=== PATIENT | male | born 1960 | race Caucasian/White ===

== ENCOUNTER 2017-05-05 08:46 | Observation (INO) | payer OTHER ==
[~2017-05-05] VITALS: Ht 177.8 cm; Wt 92.5 kg
[~2017-05-05 08:46] MED LIST: ASPI-496 PO; ATOR10TA PO; LISI1TAB3 PO
[2017-05-05] MEDS ORDERED: VALS160T3 PO (09:08)
[2017-05-05] MEDS ORDERED: ASPIRIN 81 MG TABLET CHEW ONE (09:25)
[2017-05-05] MEDS ORDERED: ASPIRIN 81 MG TABLET CHEW PO ONE (09:30)
[2017-05-05 09:51] LABS: BASOPHILS # (AUTO) 0.06 x10^3/uL (0-0.1); BASOPHILS % (AUTO) 1 % (0-1); EOSINOPHILS # (AUTO) 0.23 x10^3/uL (0-0.4); EOSINOPHILS % (AUTO) 3 % (1-7); LYMPHOCYTES # (AUTO) 1.41 x10^3/uL (1-3.4); LYMPHOCYTES % (AUTO) 16 % (22-44); MD NO; MEAN CORPUSCULAR HEMOGLOBIN 30.4 pg (27.5-34.5); MEAN CORPUSCULAR HGB CONC 34.4 g/dL (33.2-36.2); MEAN CORPUSCULAR VOLUME 88.3 fL (81-97); MEAN PLATELET VOLUME 9.2 fL (7.4-10.4); MONOCYTES # (AUTO) 0.51 x10^3/uL (0.2-0.8); MONOCYTES % (AUTO) 6 % (2-9); NEUTROPHILS # (AUTO) 6.38 x10^3/uL (1.8-6.8); NEUTROPHILS % (AUTO) 74 % (42-75); PLATELET COUNT 308 x10^3/uL (130-400); RED BLOOD COUNT 5.56 x10^6/uL (4.38-5.82); RED CELL DISTRIBUTION WIDTH 13.7 % (9.4-14.8)
[2017-05-05 10:02] LABS: ALBUMIN 3.8 g/dL (3.4-5.0); ANION GAP 6 mmol/L (5-15); CALCIUM 8.8 mg/dL (8.5-10.1); CHLORIDE 106 mmol/L (98-107); CREATININE 0.97 mg/dL (0.7-1.3)
[2017-05-05 10:05] LABS: TROPONIN I < 0.015 ng/mL (0.000-0.045)
[2017-05-05] MEDS ORDERED: morphine SULFATE 10 MG/ML, 1ML IVPush ONE (11:00)
[2017-05-05 11:27] VITALS: BP 139/95
[2017-05-05] MEDS ORDERED: LABETALOL 5MG/ML, 20ML IVPush PRN (12:00)
[2017-05-05] MEDS ORDERED: ONDANSETRON ODT 4 MG PO PRN (12:00)
[2017-05-05] MEDS ORDERED: ONDANSETRON 2MG/ML, 2ML IVPush PRN (12:00)
[2017-05-05] MEDS: ENOXAPARIN 40 MG/0.4 ML SQ SCH (12:00)
[2017-05-05 13:58] LABS: FREE T4 (FREE THYROXINE) 0.95 ng/dL (0.76-1.46)
[2017-05-05 15:19] VITALS: BP 113/81
[2017-05-05 16:22] LABS: TROPONIN I < 0.015 ng/mL (0.000-0.045)
[2017-05-05 19:20] VITALS: BP 129/76
[2017-05-05] MEDS ORDERED: VALSARTAN 160 MG TABLET PO SCH (21:00)
[2017-05-05 22:03] LABS: TROPONIN I < 0.015 ng/mL (0.000-0.045)
[2017-05-06 01:57] VITALS: BP 119/75
[2017-05-06 05:19] LABS: ALANINE AMINOTRANSFERASE 31 U/L (12-78); ALBUMIN 3.5 g/dL (3.4-5.0); ANION GAP 5 mmol/L (5-15); CALCIUM 8.9 mg/dL (8.5-10.1); CHLORIDE 106 mmol/L (98-107); CREATININE 1.03 mg/dL (0.7-1.3)
[2017-05-06 05:22] LABS: BASOPHILS # (AUTO) 0.06 x10^3/uL (0-0.1); BASOPHILS % (AUTO) 1 % (0-1); EOSINOPHILS % (AUTO) 4 % (1-7); LYMPHOCYTES # (AUTO) 1.88 x10^3/uL (1-3.4); LYMPHOCYTES % (AUTO) 20 % (22-44); MD NO; MEAN CORPUSCULAR HEMOGLOBIN 30.2 pg (27.5-34.5); MEAN CORPUSCULAR HGB CONC 33.8 g/dL (33.2-36.2); MEAN CORPUSCULAR VOLUME 89.3 fL (81-97); MEAN PLATELET VOLUME 9.2 fL (7.4-10.4); MONOCYTES # (AUTO) 0.68 x10^3/uL (0.2-0.8); MONOCYTES % (AUTO) 7 % (2-9); NEUTROPHILS % (AUTO) 68 % (42-75); PLATELET COUNT 305 x10^3/uL (130-400); RED BLOOD COUNT 5.49 x10^6/uL (4.38-5.82); RED CELL DISTRIBUTION WIDTH 13.4 % (9.4-14.8)
[2017-05-06 05:23] LABS: ALKALINE PHOSPHATASE 62 U/L (45-117); BILIRUBIN,TOTAL 1.6 mg/dL (0.2-1.0); CHOL/HDL RATIO 6.8; CHOLESTEROL, TOTAL 177 mg/dL (140-239); HDL CHOL % 15 % (26-37); HDL CHOLESTEROL (DIRECT) 26 mg/dL (40-60); LDL CHOLESTEROL,CALCULATED 131 mg/dL (54-169); TOTAL PROTEIN 7.2 g/dL (6.4-8.2); TRIGLYCERIDES 102 mg/dL (50-200); VLDL CHOLESTEROL 20 mg/dL (0-25)
[2017-05-06] MEDS ORDERED: ASPIRIN 81 MG TABLET EC PO SCH (06:00)
[2017-05-06 08:19] VITALS: BP 124/85
[2017-05-06] MEDS ORDERED: VALSARTAN 160 MG TABLET PO SCH (09:00)
[2017-05-06] MEDS: ENOXAPARIN 40 MG/0.4 ML SQ SCH (11:56)
[2017-05-06 13:00] VITALS: BP 124/81
[2017-05-06] MEDS ORDERED: ASPI-621 PO (15:55)
[2017-05-06] MEDS ORDERED: ATOR10TA9 PO (15:55)
== END 2017-05-06 18:07 | disposition home or self-care (01) ==
LOC: ED 09:02 → EDIP 10:33 → INTOOBSV 10:33 → 5SO 11:28
PROVIDERS: ADMIT Internal Medicine; ATTEND Family Medicine
DX: R55 Syncope and collapse (principal); R07.9 Chest pain, unspecified; I10 Essential (primary) hypertension; K21.9 Gastro-esophageal reflux disease without esophagitis; L40.9 Psoriasis, unspecified; E78.5 Hyperlipidemia, unspecified; F10.20 Alcohol dependence, uncomplicated; Z80.0 Family history of malignant neoplasm of digestive organs; Z82.3 Family history of stroke
CPT/HCPCS: 36415; 71045; 78452; 80048; 80053; 80061; 82040; 83690; 83735; 83880; 84100; 84439; 84484; 85025; 85379; 93005; 93017; 93306; 93880; 96372; 99285; A9502; C9898; G0378; J1650

== ENCOUNTER 2017-05-19 21:17 | Emergency (ER) | payer OTHER ==
[~2017-05-19] VITALS: Ht 177.8 cm; Wt 96.1 kg
[~2017-05-19 21:17] MED LIST changes: +ASPI-621 PO; +ATOR10TA9 PO; +VALS160T3 PO
[2017-05-19 21:50] VITALS: BP 169/108
[2017-05-19] MEDS ORDERED: SODIUM CHLORIDE FLUSH 10ML SYR IVF ONE (22:00)
[2017-05-19] MEDS ORDERED: ONDANSETRON 2MG/ML, 2ML IVPush ONE (22:00)
[2017-05-19] MEDS ORDERED: SODIUM CHLORIDE 0.9% 1,000ML IVBOLUS ONE (22:00)
[2017-05-19] MEDS ORDERED: PROPOFOL 10 MG/ML, 20ML ONE ×2 (22:29→22:36)
[2017-05-19] MEDS ORDERED: PROPOFOL 10 MG/ML, 20ML IVPush ONE (22:30)
== END 2017-05-19 23:47 | disposition home or self-care (01) ==
LOC: ED 23:40
DX: T18.128A Food in esophagus causing other injury, initial encounter (principal); I10 Essential (primary) hypertension; E78.00 Pure hypercholesterolemia, unspecified; Y93.89 Activity, other specified; Y92.89 Other specified places as the place of occurrence of the external cause; Y99.8 Other external cause status; X58.XXXA Exposure to other specified factors, initial encounter
CPT/HCPCS: 96360; 99152; 99285; J2704; J7030

== ENCOUNTER → 2017-06-09 | Outpatient (CLI) | payer OTHER ==
[2017-06-09 08:50] LABS: ALANINE AMINOTRANSFERASE 42 U/L (12-78); ALBUMIN 3.9 g/dL (3.4-5.0); ANION GAP 5 mmol/L (5-15); CALCIUM 8.7 mg/dL (8.5-10.1); CHLORIDE 108 mmol/L (98-107); CHOLESTEROL, TOTAL 143 mg/dL (140-239); CREATININE 0.84 mg/dL (0.7-1.3); TRIGLYCERIDES 82 mg/dL (50-200); VLDL CHOLESTEROL 16 mg/dL (0-25)
[2017-06-09 08:52] LABS: ALKALINE PHOSPHATASE 72 U/L (45-117); BILIRUBIN,TOTAL 1.1 mg/dL (0.2-1.0); CHOL/HDL RATIO 3.7; HDL CHOL % 27 % (26-37); HDL CHOLESTEROL (DIRECT) 39 mg/dL (40-60); LDL CHOLESTEROL,CALCULATED 88 mg/dL (54-169); LDL/HDL RATIO 2.3 (0.5-3.0)
== END | disposition home or self-care (01) ==
LOC: LAB 08:18
PROVIDERS: ATTEND Family Medicine
DX: I10 Essential (primary) hypertension (principal)
CPT/HCPCS: 36415; 80053; 80061; 82043; 83721

== ENCOUNTER → 2017-06-13 | Outpatient (CLI) | payer OTHER | END | disposition home or self-care (01) | LOC: LAB 08:13 | PROVIDERS: ATTEND Family Medicine | DX: I10 Essential (primary) hypertension (principal) | CPT/HCPCS: 36415; 83721 ==

== ENCOUNTER 2018-06-29 09:17 | Observation (INO) | payer OTHER ==
[~2018-06-29] VITALS: Ht 177.8 cm; Wt 94.0 kg
[~2018-06-29 09:17] MED LIST changes: -ASPI-621 PO; +ASPI81TA45 PO
--- NOTE | 2018-06-29 09:34 | NUR ---
PT AMBULATORY TO ROOM 1 W/ C/O L SIDE CP W/ DIZZINESS AND SOB X 2 WKS. PT STATES HE HAD CP 1-2 YRS AGO AND HAD DOMITILA SCAN DONE AND WAS NEGATIVE. HX HLD. PT RESTING ON GURNEY. NADN. VSS. MONITORS APPLIED. NABEEL NEAL AT BEDSIDE.
[2018-06-29] MEDS ORDERED: OLME40TA12 PO (09:46)
[2018-06-29] MEDS ORDERED: ASPIRIN 81 MG TABLET CHEW ONE (09:48)
[2018-06-29] MEDS ORDERED: ASPIRIN 81 MG TABLET CHEW PO ONE (10:00)
[2018-06-29 10:10] LABS: BASOPHILS # (AUTO) 0.07 x10^3/uL (0-0.1); BASOPHILS % (AUTO) 1 % (0-1); EOSINOPHILS # (AUTO) 0.11 x10^3/uL (0-0.4); EOSINOPHILS % (AUTO) 1 % (1-7); LYMPHOCYTES # (AUTO) 1.23 x10^3/uL (1-3.4); LYMPHOCYTES % (AUTO) 15 % (22-44); MD NO; MEAN CORPUSCULAR HEMOGLOBIN 30.4 pg (27.5-34.5); MEAN CORPUSCULAR HGB CONC 33.7 g/dL (33.2-36.2); MEAN CORPUSCULAR VOLUME 90.4 fL (81-97); MONOCYTES # (AUTO) 0.41 x10^3/uL (0.2-0.8); MONOCYTES % (AUTO) 5 % (2-9); NEUTROPHILS # (AUTO) 6.37 x10^3/uL (1.8-6.8); NEUTROPHILS % (AUTO) 78 % (42-75); PLATELET COUNT 305 x10^3/uL (130-400); RED BLOOD COUNT 5.28 x10^6/uL (4.38-5.82); RED CELL DISTRIBUTION WIDTH 13.2 % (9.4-14.8)
--- NOTE | 2018-06-29 10:10 | NUR ---
PT TAKEN TO US IN STABLE CONDITION.
[2018-06-29 10:21] LABS: ALANINE AMINOTRANSFERASE 32 U/L (12-78); ALBUMIN 3.9 g/dL (3.4-5.0); ANION GAP 8 mmol/L (5-15); CHLORIDE 109 mmol/L (98-107); CREATININE 0.83 mg/dL (0.7-1.3)
[2018-06-29 10:26] LABS: ALKALINE PHOSPHATASE 58 U/L (45-117); BILIRUBIN,TOTAL 1.9 mg/dL (0.2-1.0); TOTAL PROTEIN 7.5 g/dL (6.4-8.2); TROPONIN I < 0.015 ng/mL (0.000-0.045)
--- NOTE | 2018-06-29 11:45 | NUR ---
PT CHART REVIEWED AND PLACED FOR RECHECK.
--- NOTE | 2018-06-29 12:10 | NUR ---
PT RESTING ON GURNEY. NADN. DREW.
[2018-06-29] MEDS ORDERED: SODIUM CHLORIDE FLUSH 10ML SYR IVF PRN (12:30)
--- NOTE | 2018-06-29 12:53 | NUR ---
PT RESTING ON GURNEY. NADN. DREW.
[2018-06-29] MEDS ORDERED: ACETAMINOPHEN 325 MG TABLET PO PRN (13:30)
[2018-06-29] MEDS ORDERED: hydrALAzine 20 MG/ML, 1ML IVPush PRN (13:30)
[2018-06-29] MEDS ORDERED: ENALAPRILAT 1.25 MG/ML, 2ML IVPush PRN (13:30)
[2018-06-29] MEDS ORDERED: NITROGLYCERIN 0.4 MG BOTTLE (25 TABS) SL PRN (13:30)
[2018-06-29] MEDS ORDERED: morphine SULFATE 10 MG/ML, 1ML IVPush PRN (13:30)
[2018-06-29 13:34] VITALS: BP 138/86
[2018-06-29] MEDS: HEPARIN 5,000 UNITS/ML, 1ML SQ SCH ×2 (14:12→21:08)
[2018-06-29 16:39] LABS: TROPONIN I < 0.015 ng/mL (0.000-0.045)
[2018-06-29] MEDS ORDERED: ATORVASTATIN 10 MG TABLET PO SCH (21:00)
[2018-06-29] MEDS ORDERED: LOSARTAN 50MG TABLET PO SCH (21:00)
[2018-06-29] MEDS ORDERED: ASPIRIN 81 MG TABLET EC PO SCH (21:00)
[2018-06-29 21:06] VITALS: BP 139/90
[2018-06-29 22:42] LABS: TROPONIN I < 0.015 ng/mL (0.000-0.045)
[2018-06-30 00:54] VITALS: BP 130/87
[2018-06-30] MEDS: HEPARIN 5,000 UNITS/ML, 1ML SQ SCH ×2 (05:19→13:05)
[2018-06-30 08:07] VITALS: BP 129/80
[2018-06-30] MEDS ORDERED: LOSARTAN 50MG TABLET PO SCH (09:00)
[2018-06-30] MEDS ORDERED: ASPIRIN 81 MG TABLET EC PO SCH (09:00)
== END 2018-06-30 14:50 | disposition home or self-care (01) ==
LOC: ED 10:54 → EDIP 12:29 → INTOOBSV 12:29 → 5SO 13:32 → DCLOUNGE 06-30 14:40
PROVIDERS: ADMIT Family Medicine; ATTEND Family Medicine
DX: R07.89 Other chest pain (principal); I10 Essential (primary) hypertension; E78.5 Hyperlipidemia, unspecified; F41.9 Anxiety disorder, unspecified; Z79.82 Long term (current) use of aspirin; E66.9 Obesity, unspecified; E78.00 Pure hypercholesterolemia, unspecified; Z95.1 Presence of aortocoronary bypass graft
CPT/HCPCS: 36415; 71045; 78452; 80053; 84484; 85025; 93005; 93017; 93971; 96372; 99284; A9502; C9898; G0378; J1644

== ENCOUNTER → 2020-07-02 | Outpatient (CLI) | payer OTHER ==
[~2020-07-02] MED LIST changes: +LISI1TAB23 PO; -LISI1TAB3 PO; +OLME40TA12 PO
[2020-07-02 08:52] LABS: ALANINE AMINOTRANSFERASE 29 U/L (12-78); ANION GAP 5 mmol/L (5-15); CHLORIDE 109 mmol/L (98-107); CHOLESTEROL, TOTAL 132 mg/dL (140-239); CREATININE 0.73 mg/dL (0.7-1.3)
[2020-07-02 08:55] LABS: ALKALINE PHOSPHATASE 63 U/L (45-117); CHOL/HDL RATIO 3.3; HDL CHOL % 30 % (26-37); HDL CHOLESTEROL (DIRECT) 40 mg/dL (40-60); LDL CHOLESTEROL,CALCULATED 78 mg/dL (54-169); TOTAL PROTEIN 7.8 g/dL (6.4-8.2); TRIGLYCERIDES 72 mg/dL (50-200); VLDL CHOLESTEROL 14 mg/dL (0-25)
== END | disposition home or self-care (01) ==
LOC: LAB 08:23
PROVIDERS: ATTEND Family Medicine
DX: I10 Essential (primary) hypertension (principal)
CPT/HCPCS: 36415; 80053; 80061; 82043

== ENCOUNTER 2020-07-08 08:32 | Emergency (ER) | payer OTHER ==
[~2020-07-08] VITALS: Ht 177.8 cm; Wt 97.0 kg
[2020-07-08 08:47] VITALS: BP 129/81
[2020-07-08] MEDS ORDERED: LIDOCAINE-MPF 1%, 5ML ONE (09:32)
--- NOTE | 2020-07-08 09:55 | NUR ---
GABRIELA LUTZ WAS IN TO SEE PT AND WAS ABLE TO REMOVE REMAINING PIECE OF WIRE. PT TOLERATED WELL. REPORTED TO YANI OCONNOR.
[2020-07-08] MEDS ORDERED: NEOSPORIN OINT. PKT 1 PACKET ONE (09:59)
[2020-07-08] MEDS ORDERED: DIPH,PERTUSS(ACELL),TET VAC/PF 0.5 ML IM-VACC ONE ×2 (10:00→10:01)
== END 2020-07-08 10:09 | disposition home or self-care (01) ==
LOC: ED 10:05
DX: S60.351A Superficial foreign body of right thumb, initial encounter (principal); X58.XXXA Exposure to other specified factors, initial encounter; Y93.89 Activity, other specified; Y92.69 Other specified industrial and construction area as the place of occurrence of the external cause; Y99.8 Other external cause status
CPT/HCPCS: 90471; 90715